=== PATIENT | male | born 1930 | race Two or more races ===

== ENCOUNTER 2017-06-07 17:14 | Emergency (ER) | payer SELFPAY ==
[~2017-06-07] VITALS: Ht 177.8 cm; Wt 72.6 kg
[2017-06-07] MEDS ORDERED: PERM60CR12 TP (17:59)
[2017-06-07] MEDS ORDERED: ACYC800T PO (17:59)
--- NOTE | 2017-06-07 17:59 | PHYS DOC ---
Past Medical History Past Medical History: Hypertension Past Surgical History: No Surgical History Alcohol Use: None Drug Use: None Adult General Chief Complaint Chief Complaint: SKIN PROBLEM HPI HPI Patient is a 86 year old male who presents with skin rash. The patient reports 1 week history of painful itchy rash to left upper extremity. He states rash was preceded by burning sensation. Now painful & itchy. Denies fevers/chills, nausea, vomiting, shortness of breath. He denies exposures to new foods, medications, soaps, lotions, detergents, insects. No family members with similar rash. He is visiting from [place] for [employer]. Patient is Marshallese speaking, history obtained with assistance from family members. Review of Systems Review of Systems Constitutional: Denies fever or chills HENT: Denies nasal congestion or sore throat Respiratory: Denies cough or shortness of breath Cardiovascular: Denies chest pain GI: Denies abdominal pain, nausea, vomiting Musculoskeletal: Denies back pain or joint pain Integument: Reports rash Neurologic: Denies headache All other systems were reviewed and found to be within normal limits, except as documented in this note. Allergies Allergies Allergies Coded Allergies Type Severity Reaction Last Updated Verified No Known Drug Allergies 06/07/17 No Physical Exam Physical Exam Constitutional: Well developed, well nourished, no acute distress, non-toxic appearance. HENT: Normocephalic, atraumatic, bilateral external ears normal, oropharynx moist, nose normal. no face/tongue/lip swelling. Eyes: conjunctiva normal, no discharge. Neck: supple, no stridor. Cardiovascular: no edema. Lungs & Thorax: no respiratory distress. Abdomen: nondistended. Skin: T1/2 dermatome of left upper extremity with vesicular rash, from axilla to volar forearm, no erythema/warmth, no urticaria. Back: No tenderness. Extremities: No tenderness, no edema. Neurologic: Alert and oriented X 3, no focal deficits noted. Psychologic: Affect normal, judgement normal, mood normal. Current Patient Data Vital Signs Vital Signs Date Time Temp Pulse Resp B/P (MAP) Pulse Ox O2 Delivery O2 Flow Rate FiO2 06/07/17 18:07 54 21 173/74 (107) 98 Room Air 06/07/17 17:44 97.4 97.4 EKG EKG [] Radiology/Procedures Radiology/Procedures [] Course & Med Decision Making Course & Med Decision Making Pertinent Labs and Imaging studies reviewed. (See chart for details) The patient presents with rash. Appearance appears classical for herpes zoster , but pruritis is unusual. Recommend treatment with acyclovir but will also give prescription for permethrin for less likely scabies. Keep covered if exposure to infants/ women/immunocompromised. Follow up with primary care in 1 week. Come back for high fever, signs of cellulitis or anaphylaxis, any otherwise worsening condition. Discharged home in stable condition. [] Dragon Disclaimer Dragon Disclaimer This electronic medical record was generated, in whole or in part, using a voice recognition dictation system. Departure Departure Impression: Primary Impression: Herpes zoster Disposition: HOME, SELF-CARE Condition: STABLE Patient Instructions: Scabies, Shingles, [id number] Additional Instructions: You were seen in the emergency department today for rash. This appears to be shingles so please take the prescribed medication by mouth. Itching is less common with shingles, so you should also apply the shampoo in case this is actually insect bites - scabies. Please follow up with a primary care doctor in 2-3 days. Come back for high fever, difficulty breathing, uncontrolled vomiting, any otherwise worsening condition. Scripts Permethrin (PERMETHRIN) 60 Gm Cream..g. 1 CHASTITY TP ONCE, #60 GM 1 Refill Prov: BRENDA MARIEE MD 06/07/17 Acyclovir (ACYCLOVIR) 800 Mg Tablet 1 TAB PO 5XDAY, #50 TAB Prov: BRENDA MARIEE MD 06/07/17 Problem Qualifiers Primary Impression: Herpes zoster Herpes zoster complications: without complications Qualified Codes: B02.9 - Zoster without complications BRENDA MARIEE MD Jun 07, 2017 17:59
[2017-06-07 18:07] VITALS: BP 173/74
== END 2017-06-07 18:13 | disposition home or self-care (01) ==
LOC: ER 17:14
DX: B02.9 Zoster without complications (principal); I10 Essential (primary) hypertension
CPT/HCPCS: 99283